=== PATIENT | male | born 1945 | race African-American/Black ===

== ENCOUNTER → 2016-07-06 | Outpatient (CLI) | payer BC ==
[2016-07-06 17:12] LABS: ABSOLUTE BASOPHILS # (AUTO) 0.1 10^3/uL (0.0-0.2); ABSOLUTE EOSINOPHILS # (AUTO) 0.3 10^3/uL (0.0-0.6); ABSOLUTE LYMPHOCYTES (AUTO) 1.9 10^3/uL (0.5-4.7); ABSOLUTE MONOCYTES (AUTO) 0.6 10^3/uL (0.1-1.4); ABSOLUTE NEUT (AUTO) 4.1 10^3/uL (1.7-8.2); BASOPHILS % (AUTO) 0.8 % (0-2); EOSINOPHILS % (AUTO) 3.8 % (0-6); HEMATOCRIT 41.1 % (37.9-51.0); HEMOGLOBIN 13.7 g/dL (13.5-17.0); LYMPHOCYTES % (AUTO) 27.3 % (13-45); MEAN CORPUSCULAR HEMOGLOBIN 29.9 pg (27.0-33.4); MEAN CORPUSCULAR HGB CONC 33.2 g/dL (32.0-36.0); MEAN CORPUSCULAR VOLUME 90 fl (80-97); MONOCYTES % (AUTO) 9.1 % (3-13); RED BLOOD COUNT 4.57 10^6/uL (4.35-5.55); RED CELL DISTRIBUTION WIDTH 14.9 % (11.5-14.0); WHITE BLOOD COUNT 6.9 10^3/uL (4.0-10.5)
[2016-07-06 17:17] LABS: APPEARANCE,URINE CLEAR; BILIRUBIN,URINE NEGATIVE (NEGATIVE); GLUCOSE, URINE NEGATIVE (NEGATIVE); KETONES,URINE NEGATIVE (NEGATIVE); LEUKOCYTE ESTERASE,URINE SMALL (NEGATIVE); NITRITE,URINE NEGATIVE (NEGATIVE); PROTEIN,URINE NEGATIVE (NEGATIVE); URINE SPECIFIC GRAVITY 1.016; UROBILINOGEN,URINE NEGATIVE mg/dL (<2.0)
[2016-07-06 17:30] LABS: ANION GAP 11 (5-19); BLOOD UREA NITROGEN 13 mg/dL (7-20); CALCIUM 9.3 mg/dL (8.4-10.2); CARBON DIOXIDE 30 mmol/L (22-30); CHLORIDE 100 mmol/L (98-107); CREATININE RESULT 1.02 mg/dL (0.52-1.25); GLUCOSE 86 mg/dL (75-110); POTASSIUM 3.6 mmol/L (3.6-5.0); SODIUM 141.3 mmol/L (137-145)
--- NOTE | 2016-07-07 09:21 | EKG REPORT ---
SEVERITY:- ABNORMAL ECG - SINUS RHYTHM RIGHT BUNDLE BRANCH BLOCK : Confirmed by: Alvino Downey 07-Jul-2016 09:20:45
== END ==
LOC: OD 16:05
PROVIDERS: ATTEND Orthopaedic Surgery
DX: Z01.810 Encounter for preprocedural cardiovascular examination (principal); Z01.811 Encounter for preprocedural respiratory examination; Z01.818 Encounter for other preprocedural examination; Z79.899 Other long term (current) drug therapy; M16.11 Unilateral primary osteoarthritis, right hip
CPT/HCPCS: 36415; 71020; 80048; 81001; 85025; 93005; 93010

== ENCOUNTER 2016-08-02 05:27 | Inpatient (IN) | payer MEDICARE, BC ==
[~2016-08-02 05:27] MED LIST: BUPIVACAINE INJ/PF LIPOSOME/PF 266 MG/20 ML SDV INFIL PRN; IBUPROFEN 800 MG in NORMAL SALINE 250 ML IV PRN; LACTATED RINGERS 1000 ML IV PRN; LANSOPRAZOLE 15 MG TAB.RAP.DR PO PRN; LIDOCAINE 0.5% INJ-PF (5 MG/ML) 50 ML SDV SUBCUT PRN; OXYCODONE HCL SR 10 MG TABLET PO PRN; SCOPOLAMINE HYDROBROMIDE 1.5 MG PATCH.TD72 TD PRN; VANCOMYCIN HCL 1,000 MG in DEXTROSE 5%-WATER 250 ML IV PRN
[2016-08-02] MEDS ORDERED: CEFAZOLIN INJ 1 GM VIAL ONE (05:33)
[2016-08-02] MEDS ORDERED: ALBUTEROL SULFATE 0.083% NEB 2.5 MG/3 ML AMPUL NEB ONE (06:25)
[2016-08-02] MEDS ORDERED: ALBUTEROL SULFATE HFA (90 MCG/PUFF) 200 PUFF/8.5 GM MDI IH SCH (06:30)
[2016-08-02] MEDS ORDERED: ALBUTEROL SULFATE 0.083% NEB 2.5 MG/3 ML AMPUL NEB SCH (06:30)
[2016-08-02] MEDS ORDERED: MIDAZOLAM 2 MG/2 ML INJ ONE (06:58)
[2016-08-02] MEDS ORDERED: FENTANYL CITRATE INJ/PF 100 MCG/2 ML AMPUL ONE ×2 (06:58)
[2016-08-02] MEDS ORDERED: ONDANSETRON HCL INJ/PF 4 MG/2 ML SDV ONE (06:59)
[2016-08-02] MEDS ORDERED: PROPOFOL INJ 200 MG/20 ML VIAL IV ONE (06:59)
[2016-08-02] MEDS ORDERED: TRANEXAMIC ACID INJ/PF 1,000 MG/10 ML SDV IV ONE ×2 (06:59→11:00)
[2016-08-02] MEDS ORDERED: DEXAMETHASONE SOD PHOSPHATE INJ 4 MG/1 ML VIAL ONE (06:59)
[2016-08-02] MEDS ORDERED: MORPHINE SULFATE 10 MG/ML INJ ONE (06:59)
[2016-08-02] MEDS ORDERED: BUPIVACAINE INJ/PF LIPOSOME/PF 266 MG/20 ML SDV ONE (07:13)
[2016-08-02] MEDS ORDERED: THROMBIN (BOVINE) 5000 UNIT EPITAXIS KIT ONE (07:13)
[2016-08-02] MEDS ORDERED: THROMBIN (BOVINE) TOPICAL 20000 UNIT VIAL ONE (07:13)
[2016-08-02] MEDS ORDERED: MEPERIDINE HCL/PF INJ 25 MG/1 ML DISP.SYRIN IV PRN (08:11)
[2016-08-02] MEDS ORDERED: MORPHINE SULFATE 10 MG/ML INJ IV PRN ×4 (08:11→09:10)
[2016-08-02] MEDS ORDERED: DIPHENHYDRAMINE HCL 50 MG/ML VIAL IV PRN ×2 (08:11→09:10)
[2016-08-02] MEDS ORDERED: FENTANYL CITRATE INJ/PF 100 MCG/2 ML AMPUL IV PRN ×3 (08:11)
[2016-08-02] MEDS ORDERED: PROMETHAZINE HCL INJ 25 MG/1 ML VIAL IV PRN ×2 (08:11)
[2016-08-02] MEDS ORDERED: MORPHINE SULFATE 10 MG/ML INJ IM PRN (09:10)
[2016-08-02] MEDS ORDERED: MAG HYDROX/AL HYDROX/SIMETH SUSP 30 ML UDCUP PO PRN (09:10)
[2016-08-02] MEDS ORDERED: ONDANSETRON HCL INJ/PF 4 MG/2 ML SDV IV PRN (09:10)
[2016-08-02] MEDS ORDERED: ONDANSETRON 4 MG TAB.RAPDIS PO PRN (09:10)
[2016-08-02] MEDS ORDERED: RINGERS SOLUTION,LACTATED 1,000 ML IV PRN (09:10)
[2016-08-02] MEDS ORDERED: ZOLPIDEM TARTRATE 5 MG TABLET PO PRN (09:10)
--- NOTE | 2016-08-02 09:10 | Operative Report ---
Operative Report DATE OF SURGERY: 08/02/16 PREOPERATIVE DIAGNOSIS: Right hip arthritis OPERATION: Right hip arthroplasty SURGEON: KHADRA OSHEA ANESTHESIA: Spinal TISSUE REMOVED OR ALTERED: Bone to pathology COMPLICATIONS: In for acetabular bleeding ESTIMATED BLOOD LOSS: 700, per anesthesia PROCEDURE: Implants used: Femur: Striker accolade to #6 stem Acetabular shell:, 62 mm acetabular shell Liner: 36 mm flat cross-link polyethylene liner Head:. 36 chrome cobalt -4 The patient is placed in a left lateral decubitus position on the operating table. The right lower extremity and hindquarter is prepped and draped in a sterile fashion. A curvilinear incision was made over the greater trochanter a posterior approach the hip was taken. The femoral head is dislocated with difficulty and the femoral neck transected using an oscillating saw. Attention was next turned to the acetabulum. Soft tissues cleared off the acetabulum using electrocautery. In the process. Considerable bleeding was encountered inferior to the acetabular shell. This was not amenable to electrocautery hemostasis. Vicryl suture was used in a pursestring fashion to control the bleeding. The acetabulum was then prepared using a series of hemispherical reamers until a 61 millimeters reamer is seated. Subsequently a 62 millimeters [place] titanium hemispherical shell is impacted into position and secured with one screw. A standard flat 36 millimeters cross-link liner is impacted into the shell. Attention was next turned to the femur. Access is gained to the femoral canal using a box osteotome to the piriformis fossa. The femur is then prepared using a series of broaches until a number, 6 broach is seated. A trial reduction was now performed using a 36 millimeters head with and -4 neck. Preoperative leg length was recreated and is excellent anterior posterior stability. A decision was made to proceed with the above construct. All trial implants were removed. The wound is irrigated with pulsed lavage. A number 6 stem is impacted into the femoral canal. A trial reduction was again performed with a 36 mm head and a -4 neck. Findings as previously. The hip was dislocated one last time and the final chrome-cobalt head is impacted onto the trunnion. The hip was reduced. Wound is copiously irrigated with pulsed lavage. Sent closed in layers using interrupted Vicryl followed by bayron. A sterile dressing is applied and the patient's returned to recovery room in satisfactory patient.
[2016-08-02] MEDS ORDERED: PHENYLEPHRINE HCL INJ/PF 10 MG/1 ML SDV ONE (11:25)
[2016-08-02] MEDS: PRENATAL VITAMIN W-O CA NO5/FE FUMARATE/FA CAPSULE PO SCH (14:18)
[2016-08-02] MEDS: OXYCODONE HCL SR 10 MG TABLET PO SCH ×2 (14:18→22:18)
[2016-08-02] MEDS: SENNOSIDES/DOCUSATE 8.6-50 MG 1 EACH TABLET PO SCH ×2 (14:18→17:24)
[2016-08-02] MEDS: IBUPROFEN 800 MG in NORMAL SALINE 250 ML IV SCH ×2 (18:41→22:18)
[2016-08-02] MEDS ORDERED: VANCOMYCIN HCL 1,000 MG in DEXTROSE 5%-WATER 250 ML IV ONE (21:11)
[2016-08-02] MEDS: RIVAROXABAN 10 MG TABLET PO SCH (22:18)
[2016-08-02] MEDS: OXYCODONE HCL IR 5 MG TABLET PO PRN (22:18)
[2016-08-03] MEDS: IBUPROFEN 800 MG in NORMAL SALINE 250 ML IV SCH ×3 (05:11→22:21)
[2016-08-03] MEDS: LANSOPRAZOLE 30 MG TAB.RAP.DR PO SCH (05:11)
[2016-08-03 07:04] LABS: HEMATOCRIT 28.8 % (37.9-51.0); HEMOGLOBIN 9.9 g/dL (13.5-17.0); HGB HCT DIFFERENCE 0.9; MEAN CORPUSCULAR HEMOGLOBIN 30.3 pg (27.0-33.4); MEAN CORPUSCULAR HGB CONC 34.3 g/dL (32.0-36.0); MEAN CORPUSCULAR VOLUME 89 fl (80-97); RED BLOOD COUNT 3.25 10^6/uL (4.35-5.55); RED CELL DISTRIBUTION WIDTH 14.7 % (11.5-14.0); WHITE BLOOD COUNT 8.3 10^3/uL (4.0-10.5)
[2016-08-03 07:23] LABS: ANION GAP 10 (5-19); BLOOD UREA NITROGEN 21 mg/dL (7-20); CALCIUM 8.2 mg/dL (8.4-10.2); CARBON DIOXIDE 23 mmol/L (22-30); CHLORIDE 104 mmol/L (98-107); CREATININE RESULT 1.23 mg/dL (0.52-1.25); GLUCOSE 119 mg/dL (75-110); POTASSIUM 3.5 mmol/L (3.6-5.0); SODIUM 137.3 mmol/L (137-145)
[2016-08-03] MEDS: OMEGA-3 ACID ETHYL ESTERS 1 GM CAPSULE PO SCH (07:47)
[2016-08-03] MEDS: HYDROCHLOROTHIAZIDE 25 MG TABLET PO SCH (07:48)
[2016-08-03] MEDS ORDERED: AMLODIPINE BESYLATE PO SCH (08:00)
[2016-08-03] MEDS ORDERED: [UNRECOGNIZED DRUG - OTHER] PO SCH (08:00)
[2016-08-03] MEDS ORDERED: (PENDING PHARMACY ID) (Omega-3s/Dha/Epa/Fish Oil [Fish Oil 1,200 Mg Softgel] 1 EACH) PO SCH (08:00)
[2016-08-03] MEDS ORDERED: BENAZEPRIL PO SCH (08:00)
[2016-08-03] MEDS: PRENATAL VITAMIN W-O CA NO5/FE FUMARATE/FA CAPSULE PO SCH (10:26)
[2016-08-03] MEDS: AMLODIPINE BESYLATE 10 MG TABLET PO SCH (10:26)
[2016-08-03] MEDS: OXYCODONE HCL SR 10 MG TABLET PO SCH ×2 (10:27→22:21)
[2016-08-03] MEDS: PREGABALIN 75 MG CAPSULE PO SCH ×2 (10:27→17:53)
[2016-08-03] MEDS: BENAZEPRIL HCL 20 MG TABLET PO SCH (10:27)
[2016-08-03] MEDS: SENNOSIDES/DOCUSATE 8.6-50 MG 1 EACH TABLET PO SCH ×2 (10:27→17:53)
[2016-08-03] MEDS: ASCORBIC ACID 500 MG TABLET PO SCH (10:28)
[2016-08-03] MEDS: OXYCODONE HCL IR 5 MG TABLET PO PRN (14:35)
[2016-08-03] MEDS: ACETAMINOPHEN 325 MG TABLET PO PRN (14:35)
[2016-08-03] MEDS: RIVAROXABAN 10 MG TABLET PO SCH (22:21)
[2016-08-04 05:14] LABS: HEMATOCRIT 27.3 % (37.9-51.0); HEMOGLOBIN 9.4 g/dL (13.5-17.0); HGB HCT DIFFERENCE 0.9; MEAN CORPUSCULAR HEMOGLOBIN 30.7 pg (27.0-33.4); MEAN CORPUSCULAR HGB CONC 34.5 g/dL (32.0-36.0); MEAN CORPUSCULAR VOLUME 89 fl (80-97); RED BLOOD COUNT 3.08 10^6/uL (4.35-5.55); WHITE BLOOD COUNT 9.8 10^3/uL (4.0-10.5)
[2016-08-04] MEDS: LANSOPRAZOLE 30 MG TAB.RAP.DR PO SCH (06:20)
[2016-08-04] MEDS: IBUPROFEN 800 MG in NORMAL SALINE 250 ML IV SCH (06:22)
--- NOTE | 2016-08-04 07:01 | PDOC DISCHARGE SUMMARY ---
General - Admit/Disc Date/PCP Admission Date/Primary Care Provider: 08/02/16 05:27 DEVEN VALERIO MD Discharge Date: 08/04/16 - Discharge Diagnosis (1) Arthritis of right hip Is this a current diagnosis for this admission?: YesSummary: Patient is a 70-year-old black male with progressive right hip pain and functional disability secondary osteoarthritis. He is admitted for elective right hip arthroplasty. - Additional Information Resuscitation Status: Full Code Discharge Diet: As Tolerated, Regular Discharge Activity: Balance Activity w/Rest Home Medications: Amlodipine Besylate/Benazepril [Amlodipine-Benazepril 10-20 mg] 1 each PO QAM Ascorbic Acid [Vitamin C] 1,000 mg PO QAM 07/21/16 Aspirin [Aspirin EC] 81 mg PO QAM 07/21/16 Hydrochlorothiazide 25 mg PO QAM 07/21/16 Hydrocodone Bit/Acetaminophen [Hydrocodon-Acetaminophen 5-325] 1 each PO QAM Ibuprofen 800 mg PO Q6 PRN 07/21/16 Multivitamin [Multivitamins] 1 each PO QAM 07/21/16 [place]-3S/Dha/Epa/Fish Oil [Fish Oil 1,200 mg Softgel] 1 each PO QAM 07/21/16 Oxycodone HCl [Oxy-Ir 5 mg Tablet] 5 mg PO Q6HP PRN #0 tablet 08/04/16 Rivaroxaban [Xarelto 10 mg Tablet] 10 mg PO QHS #0 tablet 08/04/16 History of Present Illness History of Present Illness: LEELA PAULSON is a 70 year old male with progressive right hip pain and dysfunction secondary to osteoarthritis Hospital Course Hospital Course: Patient submitted to the operating room where he undergoes an uncomplicated right hip arthroplasty. His returned to floor in satisfactory condition. Seen by physical therapy for progressive ambulation weightbearing as tolerated. He makes excellent progress with physical therapy. Hematocrit is 27.3% on the day of discharge. Right hip abel dressings clean dry and intact. Physical Exam Vital Signs: Temp Pulse Resp BP Pulse Ox 37.5 C 86 20 134/57 H 93 08/04/16 00:33 08/04/16 00:33 08/04/16 00:33 08/04/16 00:33 08/04/16 00:33 Intake & Output 08/02/16 08/03/16 08/04/16 06:59 06:59 06:59 Intake Total 0 7320 2840 Output Total 5000 2200 Balance 0 2320 640 General appearance: PRESENT: mild distress Head exam: PRESENT: normocephalic Eye exam: PRESENT: EOMI Respiratory exam: PRESENT: unlabored Cardiovascular exam: PRESENT: RRR Pulses: PRESENT: +1 pedal pulses bilateral Vascular exam: PRESENT: normal capillary refill GI/Abdominal exam: PRESENT: soft Rectal exam: PRESENT: deferred Extremities exam: PRESENT: other - Right hip abel dressing is clean dry and intact. Leg lengths are equal. Neurovascular examinations intact. Psychiatric exam: PRESENT: appropriate affect, normal mood. ABSENT: homicidal ideation, suicidal ideation Results Laboratory Results: 08/04/16 04:41 08/03/16 05:51 08/03/16 08/03/16 08/04/16 05:51 05:51 04:41 WBC 8.3 9.8 RBC 3.25 L 3.08 L Hgb 9.9 L 9.4 L Hct 28.8 L 27.3 L MCV 89 89 MCH 30.3 30.7 MCHC 34.3 34.5 RDW 14.7 H 15.0 H Plt Count 174 160 Sodium 137.3 Potassium 3.5 L Chloride 104 Carbon Dioxide 23 Anion Gap 10 BUN 21 H Creatinine 1.23 Est GFR ( Amer) > 60 Est GFR (Non-Af Amer) 58 L Glucose 119 H Calcium 8.2 L Impressions: Pelvis X-Ray 08/02/16 09:12 IMPRESSION: SATISFACTORY POSTOPERATIVE PELVIS. Status: Imported from [facility] BEING DISCHARGED WITH ANY OF THE FOLLOWING DIAGNOSIS?: No VTE patient discharged on overlapping Therapy?: Yes Plan Discharge Plan: Patient to be discharged home with home health nursing and home health physical therapy. Loss receive a we'll walker and bedside commode. Abel dressing can be changed on postop day 7 by the home health nursing service. This can be replaced with an OpSite. Patient return to see Dr. Young in the [facility] for surgery in approximately 2 weeks for staple removal. Time Spent: Less than 30 Minutes
[2016-08-04] MEDS: OMEGA-3 ACID ETHYL ESTERS 1 GM CAPSULE PO SCH (07:22)
[2016-08-04] MEDS: HYDROCHLOROTHIAZIDE 25 MG TABLET PO SCH (07:23)
[2016-08-04] MEDS: OXYCODONE HCL IR 5 MG TABLET PO PRN (07:24)
[2016-08-04] MEDS: ACETAMINOPHEN 325 MG TABLET PO PRN (07:25)
[2016-08-04] MEDS: ASCORBIC ACID 500 MG TABLET PO SCH (10:10)
[2016-08-04] MEDS: BENAZEPRIL HCL 20 MG TABLET PO SCH (10:10)
[2016-08-04] MEDS: SENNOSIDES/DOCUSATE 8.6-50 MG 1 EACH TABLET PO SCH (10:10)
[2016-08-04] MEDS: AMLODIPINE BESYLATE 10 MG TABLET PO SCH (10:11)
[2016-08-04] MEDS: PRENATAL VITAMIN W-O CA NO5/FE FUMARATE/FA CAPSULE PO SCH (10:11)
[2016-08-04] MEDS: PREGABALIN 75 MG CAPSULE PO SCH (10:11)
[2016-08-04 11:54] VITALS: BP 115/49
== END 2016-08-04 12:58 | disposition home health service (06) | DRG 470 ==
LOC: INOR 05:27 → 4N 11:47
PROVIDERS: ADMIT Orthopaedic Surgery; ATTEND Orthopaedic Surgery
PROC: 3E0F73Z Introduction of Anti-inflammatory into Respiratory Tract, Via Natural or Artificial Opening (ICD-10-PCS; 2016-08-02)
PROC: 0SR902A Replacement of Right Hip Joint with Metal on Polyethylene Synthetic Substitute, Uncemented, Open Approach (ICD-10-PCS; principal; 2016-08-02 07:30)
DX: M16.11 Unilateral primary osteoarthritis, right hip (principal); I45.10 Unspecified right bundle-branch block; Z79.82 Long term (current) use of aspirin; Z79.899 Other long term (current) drug therapy; Z87.891 Personal history of nicotine dependence
CPT/HCPCS: 01214; 36415; 72170; 80048; 84132; 85027; 86850; 86900; 86901; 88304; 88311; 94640; 94799; C1713; C9290; G8978-GP; G8979-GP; G8987-GO; G8988-GO; J0690; J1100; J1741; J2250; J2270; J2370; J2405; J2704; J3010; J3370; J3490; J7050; J7060; J7120